=== PATIENT | female | born 1935 | race Caucasian/White ===

== ENCOUNTER 2018-11-22 12:20 | Outpatient (CLI) | payer MEDICARE ==
--- NOTE | 2018-11-22 14:39 | RAD ---
RIGHT HIP 2 VIEWS: Date: 11/22/18 I understand there has been a prior open reduction and internal fixation of a fracture involving the femoral neck and trochanters. No prior films were available for comparison. An open reduction and internal fixation is present. The screw that normally goes into the femoral hea d is screwed into the superior part of the acetabulum. The femoral head itself lies within the acetab ulum with no dislocation. The lesser trochanter fracture is mildly displaced. The femoral component o f the apparatus was unremarkable in appearance. There is slight lucency around the screw that goes in to the acetabulum which may or may not be of significance. I do not know how long it has been since t he procedure was done. IMPRESSION: Status post open reduction and internal fixation of right femoral fracture. The screw that I am accus tomed to seeing in the femoral head itself is actually in the acetabulum. I presume that was intentio nal in this particular case, but the current films should be reviewed with the original postoperative films to be certain. CODE T. POS: HOME
== END 2018-11-22 12:21 | disposition home or self-care (01) ==
LOC: BURRAD 12:20
PROVIDERS: ATTEND Nurse Practitioner Family
DX: M25.551 Pain in right hip (principal); Z98.890 Other specified postprocedural states